=== PATIENT | female | born 1995 | race Caucasian/White ===

== ENCOUNTER 2024-06-08 07:24 | Emergency (ER) | payer OTHER ==
[2024-06-08 07:41] VITALS: BP 116/76; PULSE 95; RESP 18; TEMP 99.1; BMI 34.3
== END 2024-06-08 08:14 | disposition home or self-care (01) ==
LOC: JER 07:24
DX: R21 Rash and other nonspecific skin eruption (principal)
CPT/HCPCS: 99283-25